=== PATIENT | male | born 1945 | race Caucasian/White ===

== ENCOUNTER 2021-03-26 17:05 | Emergency (ER) | payer MEDICARE ==
[2021-03-26 18:44] LABS: BASOPHIL 0 % (0-2); EOSINOPHIL 0 % (0-7); HCT 25.8 % (42.0-52.0); HGB 8.5 g/dl (13.2-18.0); MCH 35.4 pg (25.0-31.0); MCHC 32.9 g/dL (32.0-36.0); MCV 107.5 fL (78.0-100.0); MONOCYTE 7.8 % (0-12); MPV 9.3 fL (6.0-9.5); NEUTROPHIL 17.2 % (41-80); NRBC 0; PLT 407 K/uL (150-400); RDW 14.1 % (11.5-14.0)
[2021-03-26 18:49] LABS: WBC 0.6 K/uL (4.0-10.5)
[2021-03-26 18:55] LABS: ALBUMIN 2.6 g/dL (3.4-5.0); BILIRUBIN - TOTAL 0.7 mg/dL (0.2-1.0); BUN/CREAT RATIO (CALC) 16.2 RATIO; CREATININE 0.99 mg/dL (0.67-1.17); GLOBULIN (CALCULATION) 4.5 g/dL; POTASSIUM 4.4 mmol/L (3.5-5.1); TOTAL PROTEIN 7.1 g/dL (6.4-8.2)
[2021-03-26 18:58] LABS: LACTIC ACID 0.8 mmol/L (0.4-1.9)
[2021-03-26 19:03] LABS: INR 1.35 (0.9-1.2)
[2021-03-26 19:04] LABS: PTT 39.7 SECONDS (24.4-34.7)
[2021-03-26 20:04] LABS: BILIRUBIN NEGATIVE (NEGATIVE); BLOOD TRACE-INTACT Ery/uL (NEGATIVE); CLARITY CLEAR (CLEAR); COLOR YELLOW (YELLOW); GLUCOSE (U) NORMAL (NORMAL); LEUKOCYTES NEGATIVE Leu/uL (NEGATIVE); NITRITE NEGATIVE (NEGATIVE); PROTEIN NEGATIVE (NEGATIVE); SPECIFIC GRAVITY 1.015 (1.001-1.030); UROBILINOGEN 0.2 mg/dL (0.2-1.0)
[2021-03-26 20:12] LABS: URINARY RBC RARE
[2021-03-26 20:34] LABS: CORONAVIRUS 2019 SARS-COV-2 NEGATIVE (NEGATIVE); INFLUENZA A NAA NEGATIVE (NEGATIVE)
== END 2021-03-27 14:45 | disposition other institution (70) ==
LOC: FOD 17:05 → FER 17:05 → FOD 03-27 07:34 → FER 03-27 14:45
PROVIDERS: Emergency Medicine
DX: R55 Syncope and collapse (principal); R50.9 Fever, unspecified; I10 Essential (primary) hypertension; Z20.822 Contact with and (suspected) exposure to COVID-19
CPT/HCPCS: 36415; 70450; 71045; 71275; 80053; 81001; 83605; 84145; 84484; 85025; 85379; 85610; 85730; 87040; 87088; 93005; J0692; J1170; J2405; J7030; Q9967; U0002